=== PATIENT | male | born 1985 | race Two or more races ===

== ENCOUNTER 2023-04-17 13:23 | Inpatient (IN) | payer OTHER ==
[~2023-04-17] VITALS: Ht 162.6 cm; Wt 85.0 kg
[2023-04-17] MEDS ORDERED: SODIUM CHLORIDE 0.9% 1,000 ML IV ONE ×2 (13:30)
[2023-04-17] MEDS ORDERED: cefTRIAXone 1GM/50ML D5W 50 ML IV ONE (13:30)
[2023-04-17 14:09] LABS: Basophils # (auto) 0 10 ^3/uL (0-0.2); Basophils % (auto) 0.3 % (0.0-2.0); Eosinophils # (auto) 0.1 10 ^3/uL (0-0.8); Eosinophils % (auto) 0.7 % (0.0-7.0); Hematocrit 40.7 % (41.0-53.0); Hemoglobin 13.4 g/dL (13.5-17.5); Mean Corpuscular Hemoglobin 29.2 pg (28.0-32.0); Mean Corpuscular Hgb Conc. 32.9 g/dL (32.0-36.0); Mean Corpuscular Volume 88.8 fL (80.0-100.0); Monocytes # (auto) 0.7 10 ^3/uL (0-1.3); Monocytes % (auto) 10.5 % (0.0-12.0); Neutrophils # (auto) 4.3 10 ^3/uL (1.6-8.6); Neutrophils % (auto) 60.5 % (37.0-80.0); Red Blood Cells 4.59 10^6/uL (4.5-5.90); Red Cell Distribution Width 13.8 % (11.8-14.3); White Blood Cell 7.1 10^3/uL (4.4-10.8)
[2023-04-17 14:27] LABS: INR 1.06 (0.9-1.15); Partial Thromboplastin Time 30.1 SEC (24.5-34.5); Prothrombin Time 11.1 sec (9.3-11.8)
[2023-04-17 14:31] LABS: Alanine Aminotransferase 24 U/L (7-40); Albumin 4.2 g/dL (3.2-4.8); Alkaline Phosphatase 68 U/L (46-116); Anion Gap 3 (5-15); Aspartate Aminotransferase 46 U/L (13-40); BUN/Creatinine Ratio 12.8 (10.0-20.0); Blood Urea Nitrogen 12 mg/dL (9-23); Calcium 8.9 mg/dL (8.5-10.1); Carbon Dioxide 29 mmol/L (20-30); Chloride 107 mmol/L (98-107); Glucose 107 mg/dL (74-106); Potassium 4.5 mmol/L (3.5-5.1); Sodium 139 mmol/L (136-145)
[2023-04-17 14:32] LABS: Bilirubin, Total 0.9 mg/dL (0.2-1.0); Total Protein 7.1 g/dL (5.7-8.2)
[2023-04-17] MEDS ORDERED: MORPHINE SULFATE INJ 2 MG/ml SYRG IV PRN (17:30)
[2023-04-17] MEDS ORDERED: NITROGLYCERIN 0.4 MG SL TAB SL PRN (17:30)
[2023-04-17 17:45] VITALS: PULSE 54; RESP 18; O2SAT 96
[2023-04-17] MEDS ORDERED: ACETAMINOPHEN 325 MG TAB PO ONE (18:00)
[2023-04-17] MEDS ORDERED: ACETAMINOPHEN 325 MG TAB PO PRN ×2 (18:00→18:45)
[2023-04-17] MEDS: HYDROcodone-ACET 7.5/325MG TAB PO PRN ×2 (18:47→22:49)
[2023-04-17 20:44] VITALS: BP 120/63; PULSE 75; RESP 22; TEMP 97.8; O2SAT 95
[2023-04-17] MEDS ORDERED: GABA-339 PO (21:43)
[2023-04-17] MEDS: GABAPENTIN 300 MG CAP PO SCH (21:59)
[2023-04-18] MEDS: HYDROcodone-ACET 7.5/325MG TAB PO PRN ×2 (03:35→09:17)
[2023-04-18 03:51] LABS: Urine Bacteria NONE SEEN /hpf (None Seen); Urine Blood Negative /uL (Negative); Urine Clarity Clear (Clear); Urine Color Yellow (Yellow); Urine Protein, UAD TRACE (Negative); Urine Specific Gravity 1.043 (1.001-1.035); Urine Urobilinogen Normal (Negative); Urine WBC <1 /hpf (0 - 3)
[2023-04-18 05:00] VITALS: BP 116/62; PULSE 62; RESP 22; TEMP 98.7; O2SAT 92
[2023-04-18 06:13] LABS: Basophils # (auto) 0 10 ^3/uL (0-0.2); Basophils % (auto) 0.6 % (0.0-2.0); Eosinophils # (auto) 0.4 10 ^3/uL (0-0.8); Eosinophils % (auto) 6.4 % (0.0-7.0); Hematocrit 40.2 % (41.0-53.0); Hemoglobin 13.4 g/dL (13.5-17.5); Lymphocytes # (auto) 2.3 10 ^3/uL (0.4-5.4); Mean Corpuscular Hemoglobin 29.8 pg (28.0-32.0); Mean Corpuscular Hgb Conc. 33.3 g/dL (32.0-36.0); Mean Corpuscular Volume 89.5 fL (80.0-100.0); Monocytes # (auto) 0.6 10 ^3/uL (0-1.3); Monocytes % (auto) 11.3 % (0.0-12.0); Neutrophils # (auto) 2.3 10 ^3/uL (1.6-8.6); Neutrophils % (auto) 40.7 % (37.0-80.0); Nucleated Red Blood Cells % 0.1 %; Red Blood Cells 4.49 10^6/uL (4.5-5.90); Red Cell Distribution Width 13.9 % (11.8-14.3); White Blood Cell 5.6 10^3/uL (4.4-10.8)
[2023-04-18 08:00] VITALS: BP 99/60; PULSE 61; RESP 18; TEMP 98; O2SAT 97
[2023-04-18 08:52] VITALS: BP 94/60; PULSE 61; RESP 18; TEMP 98; O2SAT 97
[2023-04-18] MEDS: GABAPENTIN 300 MG CAP PO SCH (09:16)
[2023-04-18] MEDS ORDERED: cefTRIAXone 1GM/50ML D5W 50 ML IV SCH (10:00)
[2023-04-18] MEDS ORDERED: CEPH500C PO (11:11)
[2023-04-18 12:30] VITALS: BP 120/62; PULSE 59; RESP 18; TEMP 98.3; O2SAT 97
[2023-04-18 12:44] VITALS: BP 99/60; PULSE 61; RESP 18; TEMP 36.8; O2SAT 97
[2023-04-19 08:53] LABS: Hepatitis B Surface Antigen Negative (Negative)
[2023-04-19 09:14] LABS: Hepatitis C Antibody Negative (Negative)
== END 2023-04-18 15:00 | DRG 605 ==
LOC: ER 13:23 → EEVIPCON 13:23 → OVERFLOW 17:28 → WEST WING 20:30
PROVIDERS: ADMIT Internal Medicine; ATTEND Internal Medicine
DX: S31.119A Laceration without foreign body of abdominal wall, unspecified quadrant without penetration into peritoneal cavity, initial encounter (principal); S21.111A Laceration without foreign body of right front wall of thorax without penetration into thoracic cavity, initial encounter; T14.8XXA Other injury of unspecified body region, initial encounter; W26.0XXA Contact with knife, initial encounter; K76.0 Fatty (change of) liver, not elsewhere classified; G62.9 Polyneuropathy, unspecified; J43.9 Emphysema, unspecified; Y93.89 Activity, other specified; Y92.89 Other specified places as the place of occurrence of the external cause; Y99.8 Other external cause status; Z82.49 Family history of ischemic heart disease and other diseases of the circulatory system
CPT/HCPCS: 36415; 70450; 70491; 71260; 74177; 80053; 81001; 84484; 85025; 85610; 85730; 86803; 87081; 87340; 96365; G0378; J0696